=== PATIENT | male | born 1980 | race Caucasian/White ===

== ENCOUNTER 2020-06-24 15:40 | Emergency (ER) | payer OTHER ==
[~2020-06-24 15:40] MED LIST: DEPAKOTE500 MG PO
[2020-06-24] MEDS ORDERED: DICLOFENAC SODI75 MG PO (17:38)
== END 2020-06-24 17:54 | disposition home or self-care (01) ==
LOC: FER 15:40
DX: R07.81 Pleurodynia (principal); F17.210 Nicotine dependence, cigarettes, uncomplicated
CPT/HCPCS: 36415; 71101; 84484; 93005; J1040; J1885

== ENCOUNTER 2020-09-11 18:42 | Emergency (ER) | payer OTHER ==
[~2020-09-11 18:42] MED LIST changes: +DICLOFENAC SODI75 MG PO
[2020-09-11] MEDS ORDERED: ROBAXIN750 MG PO (22:58)
[2020-09-11] MEDS ORDERED: MOTRIN600 MG PO (22:58)
== END 2020-09-11 23:29 | disposition home or self-care (01) ==
LOC: FER 18:42
DX: M54.6 Pain in thoracic spine (principal); F17.200 Nicotine dependence, unspecified, uncomplicated; Z88.6 Allergy status to analgesic agent; Z88.5 Allergy status to narcotic agent; Z88.8 Allergy status to other drugs, medicaments and biological substances
CPT/HCPCS: 72072; 72128

== ENCOUNTER 2020-11-30 08:38 | Emergency (ER) | payer OTHER ==
[~2020-11-30 08:38] MED LIST changes: +MOTRIN600 MG PO; +ROBAXIN750 MG PO
[2020-11-30 09:42] LABS: BASOPHIL 1.3 % (0-2); EOSINOPHIL 1.9 % (0-5); HCT 45.4 % (42.0-52.0); HGB 15.3 g/dl (13.2-18.0); LYMPHOCYTE 21.5 % (15-48); MCHC 33.7 g/dL (32.0-36.0); MONOCYTE 8.3 % (0-12); MPV 10.4 fL (6.0-9.5); NEUTROPHIL 66.6 % (41-80); NRBC 0; PLT 226 K/uL (150-400); RDW 12.6 % (11.5-14.0); WBC 7.4 K/uL (4.0-10.5)
[2020-11-30 10:24] LABS: ALBUMIN 4.4 g/dL (3.4-5.0); BILIRUBIN - TOTAL 0.7 mg/dL (0.2-1.0); BUN/CREAT RATIO (CALC) 10.8 RATIO; CREATININE 0.83 mg/dL (0.67-1.17); GLOBULIN (CALCULATION) 3.4 g/dL; POTASSIUM 3.9 mmol/L (3.5-5.1); TOTAL PROTEIN 7.8 g/dL (6.4-8.2)
[2020-11-30 10:41] LABS: BILIRUBIN 1+ mg/dL (NEGATIVE); BLOOD NEGATIVE Ery/uL (NEGATIVE); CLARITY CLEAR (CLEAR); COLOR YELLOW (YELLOW); GLUCOSE (U) NORMAL (NORMAL); LEUKOCYTES TRACE Leu/uL (NEGATIVE); NITRITE NEGATIVE (NEGATIVE); PROTEIN NEGATIVE (NEGATIVE); pH 6.5 (5.0-9.0)
[2020-11-30 10:47] LABS: AMPHETAMINES NEGATIVE (NEGATIVE); BARBITURATES NEGATIVE (NEGATIVE); ECSTASY (MDMA) NEGATIVE (NEGATIVE); MARIJUANA (THC) POSITIVE (NEGATIVE); METHADONE NEGATIVE (NEGATIVE); OPIATES NEGATIVE (NEGATIVE); OXYCODONE NEGATIVE (NEGATIVE)
[2020-11-30 10:47] LABS: BACTERIA TRACE; CALCIUM OXALATE CRYSTALS TRACE; URINARY RBC RARE
[2020-11-30] MEDS ORDERED: DEPAKOTE250 MG PO (11:02)
== END 2020-11-30 11:42 | disposition home or self-care (01) ==
LOC: FER 08:38
PROVIDERS: Internal Medicine
DX: G40.409 Other generalized epilepsy and epileptic syndromes, not intractable, without status epilepticus (principal); F17.200 Nicotine dependence, unspecified, uncomplicated; Z88.6 Allergy status to analgesic agent; Z88.8 Allergy status to other drugs, medicaments and biological substances
CPT/HCPCS: 36415; 70450; 72125; 80053; 80305; 81001; 85025; J0780

== ENCOUNTER 2021-08-24 01:57 | Emergency (ER) | payer SELFPAY ==
[~2021-08-24 01:57] MED LIST changes: +DEPAKOTE250 MG PO
[2021-08-24 02:24] LABS: BASOPHIL 1.7 % (0-2); EOSINOPHIL 2.5 % (0-5); HCT 42.2 % (42.0-52.0); HGB 14.8 g/dl (13.2-18.0); LYMPHOCYTE 37.4 % (15-48); MCH 31.2 pg (25.0-31.0); MCHC 35.1 g/dL (32.0-36.0); MCV 88.8 fL (78.0-100.0); MONOCYTE 7.5 % (0-12); MPV 10.6 fL (6.0-9.5); NEUTROPHIL 50.5 % (41-80); NRBC 0; PLT 240 K/uL (150-400); RBC 4.75 M/uL (4.70-6.00); RDW 12.8 % (11.5-14.0); WBC 7.7 K/uL (4.0-10.5)
[2021-08-24 02:40] LABS: BUN/CREAT RATIO (CALC) 9.4 RATIO; CREATININE 0.85 mg/dL (0.67-1.17); MAGNESIUM 1.9 mg/dL (1.8-2.4); POTASSIUM 3.3 mmol/L (3.5-5.1)
[2021-08-24 03:08] LABS: CORONAVIRUS 2019 SARS-COV-2 NEGATIVE (NEGATIVE); INFLUENZA A NAA NEGATIVE (NEGATIVE)
[2021-08-24 04:16] LABS: ECSTASY (MDMA) NEGATIVE (NEGATIVE); MARIJUANA (THC) POSITIVE (NEGATIVE); METHADONE NEGATIVE (NEGATIVE); OPIATES POSITIVE (NEGATIVE)
[2021-08-24 04:17] LABS: AMPHETAMINES NEGATIVE (NEGATIVE); BARBITURATES NEGATIVE (NEGATIVE); OXYCODONE NEGATIVE (NEGATIVE)
[2021-08-24] MEDS ORDERED: OMEPRAZOLE40 MG PO (07:15)
== END 2021-08-24 07:32 | disposition home or self-care (01) ==
LOC: FER 01:57
PROVIDERS: Internal Medicine
DX: R07.89 Other chest pain (principal); E87.6 Hypokalemia; F17.210 Nicotine dependence, cigarettes, uncomplicated; Z88.8 Allergy status to other drugs, medicaments and biological substances; Z88.5 Allergy status to narcotic agent; Z20.822 Contact with and (suspected) exposure to COVID-19
CPT/HCPCS: 36415; 71045; 71275; 80048; 80305; 83735; 84145; 84484; 85025; 93005; J2060; J2270; J2405; J3475; J7030; Q9967; U0002

== ENCOUNTER 2021-11-07 11:43 | Emergency (ER) | payer SELFPAY ==
[~2021-11-07 11:43] MED LIST changes: +OMEPRAZOLE40 MG PO
== END 2021-11-07 14:59 | disposition home or self-care (01) ==
LOC: FER 11:43
DX: S43.035A Inferior dislocation of left humerus, initial encounter (principal); G40.909 Epilepsy, unspecified, not intractable, without status epilepticus; Z28.310 Unvaccinated for COVID-19; Z79.899 Other long term (current) drug therapy; Z88.5 Allergy status to narcotic agent
CPT/HCPCS: 73020; 73030; 96374; J1170

== ENCOUNTER 2022-01-13 02:49 | Emergency (ER) | payer SELFPAY ==
[2022-01-13 03:17] LABS: BASOPHIL 1.4 % (0-2); HCT 47.5 % (42.0-52.0); HGB 16.3 g/dl (13.2-18.0); LYMPHOCYTE 28.1 % (15-48); MCH 30.8 pg (25.0-31.0); MCHC 34.3 g/dL (32.0-36.0); MCV 89.8 fL (78.0-100.0); MONOCYTE 7.7 % (0-12); MPV 10.3 fL (6.0-9.5); NEUTROPHIL 61.5 % (41-80); NRBC 0; PLT 287 K/uL (150-400); RBC 5.29 M/uL (4.70-6.00); WBC 12.5 K/uL (4.0-10.5)
[2022-01-13 03:22] LABS: ALBUMIN 4.6 g/dL (3.4-5.0); BILIRUBIN - TOTAL 0.9 mg/dL (0.2-1.0); BUN/CREAT RATIO (CALC) 6.8 RATIO; CREATININE 0.88 mg/dL (0.67-1.17); GLOBULIN (CALCULATION) 3.5 g/dL; POTASSIUM 3.4 mmol/L (3.5-5.1); TOTAL PROTEIN 8.1 g/dL (6.4-8.2)
[2022-01-13 04:40] LABS: BILIRUBIN NEGATIVE (NEGATIVE); BLOOD NEGATIVE Ery/uL (NEGATIVE); CLARITY CLEAR (CLEAR); COLOR YELLOW (YELLOW); GLUCOSE (U) NORMAL (NORMAL); LEUKOCYTES NEGATIVE Leu/uL (NEGATIVE); NITRITE NEGATIVE (NEGATIVE); PROTEIN NEGATIVE (NEGATIVE); SPECIFIC GRAVITY <=1.005 (1.001-1.030); UROBILINOGEN 0.2 mg/dL (0.2-1.0)
[2022-01-13] MEDS ORDERED: TRILEPTAL150 MG PO (04:42)
[2022-01-13 04:44] LABS: AMPHETAMINES NEGATIVE (NEGATIVE); BARBITURATES NEGATIVE (NEGATIVE); ECSTASY (MDMA) NEGATIVE (NEGATIVE); MARIJUANA (THC) POSITIVE (NEGATIVE); METHADONE NEGATIVE (NEGATIVE); OPIATES NEGATIVE (NEGATIVE); OXYCODONE NEGATIVE (NEGATIVE)
[2022-01-13 04:48] LABS: SQUAMOUS EPITHELIAL CELLS RARE; URINARY RBC RARE
== END 2022-01-13 04:56 | disposition home or self-care (01) ==
LOC: FER 02:49
PROVIDERS: Emergency Medicine
DX: G40.909 Epilepsy, unspecified, not intractable, without status epilepticus (principal); F17.200 Nicotine dependence, unspecified, uncomplicated; Z28.310 Unvaccinated for COVID-19; Z88.5 Allergy status to narcotic agent; Z88.8 Allergy status to other drugs, medicaments and biological substances
CPT/HCPCS: 36415; 70450; 73030; 80053; 80305; 81001; 85025; 93005; J2310; J7030